=== PATIENT | female | born 1945 | race Caucasian/White ===

== ENCOUNTER → 2017-10-28 | Outpatient (CLI) | payer MEDICARE ==
[2017-10-28 11:32] LABS: Blood Urea Nitrogen 22 mg/dL (7-17); Non-African American GFR(MDRD) >60 (>60 ml/min/1.73 sqM)
--- NOTE | 2017-10-28 13:34 | CT ---
EXAMINATION TYPE: CT ChestAbdPelvis w con DATE OF EXAM: 10/28/2017 INDICATION: Abnormal bone scan. Low back pain with leg weakness COMPARISON: NONE CT DLP: 815.1 mGycm CONTRAST: Performed with Oral Contrast and with IV Contrast, patient injected with 100 mL of Omnipaque 300. TECHNIQUE: Axial images at 5 mm thick sections. Reconstructed images in the coronal plane. Delayed images through the kidneys. FINDINGS: CT CHEST: There is a left breast prosthesis. Portion of the thyroid visualized is normal. No suspicious lung nodules or focal infiltrates are present. Some mild compressive atelectasis is lik na present within the posterior lung bases bilaterally. No enlarged mediastinal or hilar adenopathy is evident. The ascending aorta diameter at the level of the main pulmonary artery is 3.7 cm. The main pulmonary artery diameter at the bifurcation is 3.[address] ABDOMEN: Liver: There are tiny hypodensities scattered within the liver likely related to small hepatic cysts. Spleen: Normal Pancreas: Normal Adrenal glands: The adrenal glands are normal. Gallbladder: Normal Kidneys: No masses are evident. No hydronephrosis is present. Tiny cortical renal cyst is on the righ t mid kidney. Delayed images were obtained through the kidneys demonstrated in the inferior pole righ t peripelvic cyst. Aorta: Vascular calcification is within the aorta. Inferior vena cava: Normal. CT PELVIS: Loops of bowel within the abdomen and pelvis are normal. There are loops of bowel which are incom pletely distended or lack oral contrast limiting their evaluation. Appendix: Not identified Urinary bladder: Normal. Genitourinary structures: Osseous structures: There is a lytic area in the posterior left acetabular column. Some erosion of th e cortex may be present. Since milder hypodensities within the right posterior column. Metastatic dis ease is suspected. There is erosion in the superior right ilium adjacent above the acetabulum. Lytic areas are within the left iliac wing. Lytic areas are within the sacrum and medial right iliac wing. There are scattered lytic areas within the lumbar spine posteriorly at L3. Some posterior compression may be present without spinal canal stenosis. There is a severe compression deformity of L1 with emmanuelle e posterior wall displacement. Multiple lytic areas are within the is utilized to L1 level. Lytic are as are present T12, T11, T10 T9, T8, T6 T2. Additional areas have milder lytic lesions there is erosi on and replacement of the anterior mid sternum. Subcutaneous rib fracture may be present on the right , series 3 image 27. Lytic lesions within the ribs are evident. Fractures may be in the posterior lat eral ribs, series 3 image 31 bilaterally. IMPRESSIONS: 1. Multiple osseous metastatic lesions throughout the axial skeleton, ribs, and pelvis within the fie ld-of-view.
== END | disposition home or self-care (01) ==
LOC: RADCTMAIN 10:30
PROVIDERS: ATTEND Internal Medicine
DX: C79.51 Secondary malignant neoplasm of bone (principal); C50.912 Malignant neoplasm of unspecified site of left female breast
CPT/HCPCS: 82565; 84520; 71260; 74177; 36415; Q9967

== ENCOUNTER → 2018-01-27 | Outpatient (CLI) | payer MEDICARE ==
[2018-01-27 10:13] LABS: Basophils # (A) 0.1 k/uL (0-0.2); Basophils % (A) 1 %; Eosinophils # (A) 0.2 k/uL (0-0.7); Eosinophils % (A) 3 %; HCT 37.7 % (34.0-46.0); HGB 12.2 gm/dL (11.4-16.0); Lymphocytes # (A) 0.6 k/uL (1.0-4.8); Lymphocytes % (A) 12 %; MCH 28.8 pg (25.0-35.0); MCHC 32.2 g/dL (31.0-37.0); MCV 89.2 fL (80.0-100.0); Mean Platelet Volume 7.3; Monocytes # (A) 0.4 k/uL (0-1.0); Monocytes % (A) 7 %; Neutrophils # (A) 4.2 k/uL (1.3-7.7); Neutrophils % (A) 76 %; Platelet Count 351 k/uL (150-450); RBC 4.23 m/uL (3.80-5.40); RDW 15.9 % (11.5-15.5); WBC 5.5 k/uL (3.8-10.6)
[2018-01-27 10:20] LABS: ALT 27 U/L (9-52); AST 38 U/L (14-36); Albumin 4.3 g/dL (3.5-5.0); Alkaline Phosphatase 340 U/L (38-126); Anion Gap 14 mmol/L; Blood Urea Nitrogen 17 mg/dL (7-17); Calcium 8.8 mg/dL (8.4-10.2); Carbon Dioxide 23 mmol/L (22-30); Chloride 105 mmol/L (98-107); Glucose 100 mg/dL (74-99); Potassium 4.7 mmol/L (3.5-5.1); Sodium 142 mmol/L (137-145); Total Bilirubin 0.5 mg/dL (0.2-1.3); Total Protein 7.4 g/dL (6.3-8.2)
--- NOTE | 2018-01-27 11:33 | CT ---
EXAMINATION TYPE: CT ChestAbdPelvis w con DATE OF EXAM: 01/27/2018 COMPARISON: 10/28/2017 HISTORY: Secondary malignant neoplasm of breast CT DLP: 706.50 mGycm CONTRAST: CT scan of the chest, abdomen and pelvis is performed with Oral Contrast and with IV Contrast, patien t injected with 100 ml mL of Isovue 300. CT Chest: LUNGS: The lungs are clear and free of infiltrate. Atelectatic changes right medial lung base. No pul monary nodule or mass is detected. No pleural effusion or CT evidence of interstitial lung disease. MEDIASTINUM: Thoracic aorta is of normal caliber. The heart is not enlarged. No evidence for media stinal mass or adenopathy. HILAR STRUCTURES: No evidence for mass. No hilar adenopathy is appreciated. OTHER: Left-sided breast implant is in place. CONTRAST CT ABDOMEN AND PELVIS FINDINGS: LIVER/GB: No calcified gallstones. Stable subcentimeter lesions left hepatic lobe which are likely related to small hepatic cysts although are too small to characterize. No new lesions are identified. . Biliary tree is of normal caliber. PANCREAS: No inflammation. No distinct mass. SPLEEN: No splenic enlargement. No lesion seen. ADRENALS: No nodule. No thickening. KIDNEYS/BLADDER: No hydronephrosis. No nephrolithiasis. No disctinct renal mass. BOWEL: Sliding-type hiatal hernia. Normal appendix. Normal bowel caliber. No inflammation. GENITAL ORGANS: No gross abnormality. LYMPH NODES: No greater than 1cm abdominal or pelvic lymph nodes are appreciated. AORTA: No significant abnormality. OSSEOUS STRUCTURES: Diffuse bony metastatic disease again noted. New severe compression fracture invo lving T3 and T8. No significant bony retropulsion appreciated however if clinical symptoms warrant MR I should be performed. Persistent severe compression fracture of L1 unchanged in appearance. New mode rate compression fracture of T10. OTHER: No significant additional abnormality is seen. IMPRESSION: 1. Diffuse Bony metastatic disease identified. New Thoracic and lumbar compression fractures as noted. 2. Stable 2 small to characterize hepatic lesions.
--- NOTE | 2018-01-27 13:54 | NM ---
EXAMINATION TYPE: NM bone scan whole body DATE OF EXAM: 01/27/2018 COMPARISON: NONE HISTORY: C79.81 Secondary malignant neoplasm of breast Delayed whole-body scanning was performed following the injection of 23.7 mCi Tc 99m MDP. Images acq uired 3.25 hours post injection. FINDINGS: Intense radiotracer accumulation is noted throughout the bony calvarium. Foci of increased radiotrace r accumulation is noted to involve virtually all of the bilateral ribs, virtually the entirety of the thoracic spine as well as the upper lumbar spine. There is evidence of metastatic disease to the sac rum bilaterally left greater than right as well as the supra-acetabular regions extending into the il iac crest right greater than left. Proximal left femoral head and neck greater than right proximal fe moral uptake compatible with metastatic disease. Uptake about the right mid femoral diaphysis as well as the right humeral diaphysis. Focal increased uptake involving the region of the right coracoid. D egenerative uptake of the knees and wrists and shoulders. IMPRESSION: Multifocal metastatic uptake as noted above.
[2018-01-27 19:14] LABS: CA27.29 Breast Ca Marker 356.6 U/mL (0.0-38.5)
== END | disposition home or self-care (01) ==
LOC: RADNMMAIN 09:17
PROVIDERS: ATTEND Internal Medicine Hematology & Oncology
DX: C79.81 Secondary malignant neoplasm of breast (principal); C79.51 Secondary malignant neoplasm of bone; R94.8 Abnormal results of function studies of other organs and systems; L98.9 Disorder of the skin and subcutaneous tissue, unspecified
CPT/HCPCS: 80053; 86300 ×2; 85025; 71260; 74177; 36415; 78306; A9503; Q9967

== ENCOUNTER → 2018-03-26 | Outpatient (CLI) | payer MEDICARE ==
[2018-03-26 11:31] LABS: ALT 24 U/L (9-52); AST 36 U/L (14-36); Albumin 4.5 g/dL (3.5-5.0); Alkaline Phosphatase 186 U/L (38-126); Anion Gap 14 mmol/L; Blood Urea Nitrogen 17 mg/dL (7-17); Calcium 8.9 mg/dL (8.4-10.2); Carbon Dioxide 22 mmol/L (22-30); Chloride 104 mmol/L (98-107); Glucose 96 mg/dL (74-99); Sodium 140 mmol/L (137-145); Total Bilirubin 0.7 mg/dL (0.2-1.3); Total Protein 7.4 g/dL (6.3-8.2)
[2018-03-26 11:33] LABS: Potassium 5.4 mmol/L (3.5-5.1)
[2018-03-26 11:59] LABS: Anisocytosis Slight; HCT 35.7 % (34.0-46.0); HGB 12.3 gm/dL (11.4-16.0); MCH 33.3 pg (25.0-35.0); MCHC 34.4 g/dL (31.0-37.0); Macrocytosis Slight; Mean Platelet Volume 7.3; Platelet Count 180 k/uL (150-450); RBC 3.69 m/uL (3.80-5.40); RDW 17.3 % (11.5-15.5)
[2018-03-26 12:03] LABS: MCV 96.7 fL (80.0-100.0)
[2018-03-26 12:44] LABS: Eosinophils # (M) 0.02 k/uL (0-0.7); Lymphocytes # (M) 0.32 k/uL (1.0-4.8); Monocytes # (M) 0.16 k/uL (0-1.0); Neutrophils % (M) 75 %; Nucleated Red Blood Cells 0 /100 WBC (0-0); Total Cells Counted 100
[2018-03-26 12:45] LABS: Anisocytosis (M) Present; Poikilocytosis (M) Present
--- NOTE | 2018-03-26 12:56 | CT ---
EXAMINATION TYPE: CT ChestAbdPelvis w con DATE OF EXAM: 03/26/2018 COMPARISON: 01/27/2018 HISTORY: Breast cancer with bone metastases CT DLP: 821.20 mGycm CONTRAST: CT scan of the chest, abdomen and pelvis is performed with Oral Contrast and with IV Contrast, patien t injected with 100 ml mL of Isovue 300. CT Chest: LUNGS: The lungs are clear and free of infiltrate. Right basilar parenchymal scar atelectasis. No pul monary nodule or mass is detected. No pleural effusion or CT evidence of interstitial lung disease. MEDIASTINUM: Thoracic aorta is of normal caliber. The heart is not enlarged. No evidence for media stinal mass or adenopathy. Small sliding-type hiatal hernia. HILAR STRUCTURES: No evidence for mass. No hilar adenopathy is appreciated. OTHER: Left mastectomy with implant in place. Right breast appears grossly unremarkable. CONTRAST CT ABDOMEN AND PELVIS FINDINGS: LIVER/GB: No calcified gallstones. Probable hepatic cysts remain stable. No definite solid hepatic lesions identified. Biliary tree is of normal caliber. PANCREAS: No inflammation. No distinct mass. SPLEEN: No splenic enlargement. No lesion seen. ADRENALS: No nodule. No thickening. KIDNEYS/BLADDER: No hydronephrosis. No nephrolithiasis. No distinct solid renal mass. Normal renal cortical cysts stable. BOWEL: Normal appendix. Normal bowel caliber. No inflammation. GENITAL ORGANS: No gross abnormality. LYMPH NODES: No greater than 1cm abdominal or pelvic lymph nodes are appreciated. AORTA: No significant abnormality. OSSEOUS STRUCTURES: Diffuse bony metastatic disease again noted stable pathologic compression fractur es of the lower thoracic and upper lumbar segments. No significant progression identified at this edwin e. OTHER: No significant additional abnormality is seen. IMPRESSION: 1. Stable diffuse bony metastatic disease. 2. Stable probable hepatic cysts. 3. Stable right renal cysts.
--- NOTE | 2018-03-26 14:47 | NM ---
EXAMINATION TYPE: NM bone scan whole body DATE OF EXAM: 03/26/2018 COMPARISON: 01/20/2017 HISTORY: Follow-up metastatic disease to the bone. Breast carcinoma. Delayed whole-body scanning was performed following the injection of 24.4 mCi Tc 99m MDP. Images acq uired 3 hours post injection. FINDINGS: Persistent but improved lesions: Bony calvarium, right supra-acetabular region. Stable lesions: Throughout the thoracic spine and upper lumbar spine, bilateral ribs, sacrum, left banks pra-acetabular region and proximal femora. Newly lesions: None Result lesions: None IMPRESSION: 1. Diffuse bony metastatic lesions are again noted however there does appear to be slight improvement about the bony calvarium and right supra-acetabular region. Remaining lesions remain stable.
[2018-03-26 17:18] LABS: CA27.29 Breast Ca Marker 245.9 U/mL (0.0-38.5)
== END | disposition home or self-care (01) ==
LOC: RADNMMAIN 10:23
PROVIDERS: ATTEND Internal Medicine Hematology & Oncology
DX: C79.51 Secondary malignant neoplasm of bone (principal); C50.912 Malignant neoplasm of unspecified site of left female breast; N28.1 Cyst of kidney, acquired
CPT/HCPCS: 80053; 86300 ×2; 85025; 71260; 74177; 36415; 78306; A9503; Q9967

== ENCOUNTER → 2018-07-09 | Outpatient (CLI) | payer MEDICARE ==
--- NOTE | 2018-07-09 15:55 | CT ---
EXAMINATION TYPE: CT ChestAbdPelvis w con DATE OF EXAM: 07/09/2018 COMPARISON: 03/26/2018 and 01/27/2018 HISTORY: 73-year-old female breast CA with bone mets TECHNIQUE: Contiguous axial scanning of the chest, abdomen, and pelvis performed with IV Contrast, pa tient injected with 100 mL of Isovue 300. Delayed images through the kidneys were obtained. Coronal/s agittal reconstructions performed. CT DLP: 1667.6 mGycm Automated exposure control for dose reduction was used. FINDINGS: Chest: Heart is upper limits of normal in size without pericardial effusion. Borderline ectasia ascending aorta 3.5 cm. Conventional arch vessel branching anatomy. Borderline ect mirian upper descending thoracic aorta at 3.0 cm. Borderline sized caliber to the main right and left pulmonary arteries at 2.6 and 2.5 cm, respectivel y, possibly representing underlying pulmonary arterial hypertension. Patient status post left mastectomy with breast reconstruction. No thoracic lymphadenopathy by CT siz e criteria Some new focal patchy opacity along the medial aspect of the right superior mediastinum probably repr esenting atelectasis. No consolidation or pleural effusion. Strandy areas of atelectasis in the lower lungs. ABDOMEN: Small hiatal hernia. Stable 9 mm left hepatic lobe hypodensity likely a cyst. An additional adjacent hypodensity segment 3 left liver lobe, axial image 73 is also stable, probable cysts. 2 other hypodense lesions in the rig ht liver lobe measuring up to 6 mm, axial image 81 and 82 remain unchanged and are indeterminate. No new hepatic lesion seen. Portal venous system is patent. No biliary ductal dilatation. Adrenal glands, spleen, and pancreas appear within normal limits. A 1.6 cm parapelvic cyst on the right and a tiny subcentimeter cortical cyst right lower pole redemon strated. 3 mm nonobstructive left renal calculus and a subcentimeter anterior cortical cyst are unchanged. No dilated small bowel, free fluid, or free air. No mesenteric or retroperitoneal lymphadenopathy. No significant stool burden. Mild degree diverticulosis ascending colon and then also at the junction of the descending and sigmoid colon. No pericolonic inflammatory change. Pelvis: Bladder is moderately urine distended measuring up to 12.3 cm. Uterus surgically absent. Neither ovar y is visualized. No abnormal fluid collection the pelvis or pelvic lymphadenopathy. Bones: Diffuse osseous metastases show progressive sclerosis. Some larger lytic areas remain such as involvi ng the posterior left acetabulum (which has similar medial wall erosion), bilateral iliac bones, and sternum. Multiple pathologic bilateral rib fracture deformities are redemonstrated. Stable compression collapse of L1, mild of T11, moderate of T8, and severe of T3. IMPRESSION: 1. STATUS POST LEFT MASTECTOMY WITH BREAST RECONSTRUCTION. 2. APPROXIMATELY 4 HYPODENSE LIVER LESIONS MEASURING UP TO 9 MM ARE UNCHANGED. SUSPECT THAT AT LEAST A COUPLE OF THESE REPRESENT BENIGN CYSTS. A COUPLE IN THE RIGHT LIVER LOBE MEASURING UP TO 6 MM ARE M ORE INDETERMINATE. 3. REDEMONSTRATED DIFFUSE OSSEOUS METASTATIC DISEASE. THERE IS PROGRESSIVE SCLEROSIS INVOLVING THE MA JORITY OF LESIONS WHICH WOULD FAVOR PROGRESSIVE HEALING CHANGE. SOME LARGER AREAS OF LYTIC DESTRUCTIO N REMAIN BUT HAVE NOT INCREASED IN SIZE. STABLE VERTEBRAL COMPRESSION DEFORMITIES. THE THORACOLUMBAR SPINE WILL BE REPORTED SEPARATELY.
--- NOTE | 2018-07-09 16:02 | CT ---
CT cervical thoracic and lumbar spine HISTORY: Breast cancer with bone metastasis Reconstructed images of the cervical thoracic and lumbar spine performed on patient's CT same day Correlation to bone scan 03/26/2018 Cervical spine show some loss of height at C3. Sclerotic foci present diffusely within the cervical s pine. There is also underlying degenerative disc change. Lucency also present within the right latera l aspect C1. Cervical vertebral bodies are intact. There is no evident spinal stenosis or significant foraminal encroachment. Thoracic spine shows compression fracture with loss of height of greater than 75% centrally at T3. Re tropulsion of approximately 3 to 4 mm is suggested. T8 also shows loss of height of approximately 50% with minimal retropulsion of only approximately 2 to 3 mm. Mild loss of height present at T11, infer ior endplate projects posteriorly approximately 4 mm causing some anterior mass effect on the thecal sac There are mixed lytic and sclerotic foci present throughout the skeleton. At L1 there is loss of height of superior endplate by approximately 75%, some kyphosis is present, re trolisthesis grade 1 is present L1-L2 with some mild spinal stenosis resulting. Foraminal encroachmen t also suspected at T12-L1, L1-2 on the right. Superior endplate of L3 also show some mild loss of he ight posteriorly. The lytic lesion seen within the sternum. There are sclerotic foci also within the manubrium and with in the pelvis, sacrum, ribs. There is an underlying spinal curvature. IMPRESSION: Metastatic disease as described.
== END ==
LOC: RADNMMAIN 11:06
PROVIDERS: ATTEND Internal Medicine Hematology & Oncology
DX: C79.51 Secondary malignant neoplasm of bone (principal); C50.912 Malignant neoplasm of unspecified site of left female breast; Z90.12 Acquired absence of left breast and nipple; K76.9 Liver disease, unspecified
CPT/HCPCS: 72129; 72126; 72132; 71260; 74177; 78306; A9503; Q9967

== ENCOUNTER → 2018-10-28 | Outpatient (CLI) | payer MEDICARE ==
--- NOTE | 2018-10-28 08:23 | CT ---
EXAMINATION TYPE: CT CervThorLumbar spine wo con DATE OF EXAM: 10/28/2018 COMPARISON: 07/09/2018 HISTORY: Follow up scan per patient breast CA with metastatic disease. CT DLP: 1001.7 mGycm Automated exposure control for dose reduction was used. Unenhanced CT of the cervical, thoracic and l umbar spines was performed. FINDINGS: There is a lesion noted inner table right occipital bone. Cervical spine demonstrates mild loss of height involving superior plate of C3 unchanged. Sclerotic f oci present diffusely within the cervical spine. There is also underlying degenerative disc change. L ucency also present within the right lateral aspect C1. Cervical vertebral bodies are intact. There i s no evident spinal stenosis or significant foraminal encroachment. Overall stable appearance. Thoracic spine shows compression fracture with loss of height of greater than 90% unchanged from prio r examination centrally at T3. Retropulsion of approximately 3 to 4 mm is suggested. T8 also shows lo ss of height of approximately 50% with minimal retropulsion of only approximately 2 to 3 mm. Stable a ppearance Mild loss of height present at T11, inferior endplate projects posteriorly approximately 4 mm causing some anterior mass effect on the thecal sac There are mixed lytic and sclerotic foci prese nt throughout the skeleton. At L1 there is loss of height of superior endplate by approximately 75%, some kyphosis is present, re trolisthesis grade 1 is present L1-L2 with some mild spinal stenosis resulting. Foraminal encroachmen t also suspected at T12-L1, L1- 2 on the right. Superior endplate of L3 also show some mild loss of h eight posteriorly. The lytic lesion seen within the sternum. There are sclerotic foci also within the manubrium and within the pelvis, sacrum, ribs. There is an underlying spinal curvature. IMPRESSION: ESSENTIALLY STABLE METASTATIC DISEASE TO THE CERVICAL, THORACIC AND LUMBAR SPINE.
== END ==
LOC: RADCTMAIN 06:42
PROVIDERS: ATTEND Internal Medicine
DX: C50.819 Malignant neoplasm of overlapping sites of unspecified female breast (principal); C79.49 Secondary malignant neoplasm of other parts of nervous system; C79.51 Secondary malignant neoplasm of bone
CPT/HCPCS: 72125; 72128; 72131

== ENCOUNTER → 2019-03-22 | Outpatient (CLI) | payer MEDICARE ==
[2019-03-22 09:41] LABS: Blood Urea Nitrogen 13 mg/dL (7-17)
--- NOTE | 2019-03-22 17:11 | NM ---
EXAMINATION TYPE: NM bone scan whole body DATE OF EXAM: 03/22/2019 COMPARISON: 07/09/2018 HISTORY: Breast cancer with bone metastases Delayed whole-body scanning was performed following the injection of 25.1 mCi Tc 99m MDP. Images wer e acquired 3.5 hours post injection. FINDINGS: Multiple foci radiotracer accumulation are within the calvarium. There are multiple scattered areas o f uptake within the bilateral ribs compatible with metastatic disease. Radiotracer accumulation withi n scattered areas of the right humerus are suspicious for metastatic disease. Suspicious uptake is wi thin the sternum in the mid and lower portion suspicious for metastatic disease. There is uptake within the L2 pedicles, the L3 and L1 vertebral bodies, T12, T11, T10, T8, T6 vertebr al body regions suspicious for metastatic disease. Some subtle uptake near the lesser trochanters of the bilateral hips may be present. Uptake in the region of the sacral wings appears less intense than the comparison. Femoral uptake oscar ears less apparent on the current exam. Radiotracer distribution otherwise appears similar. No new hy permetabolic activity is identified. IMPRESSION: 1. Overall distribution of suspected metastasis appears stable from comparison.
--- NOTE | 2019-03-22 17:49 | CT ---
EXAMINATION TYPE: CT ChestAbdPelvis w con DATE OF EXAM: 03/22/2019 INDICATION: Breast cancer with bone metastasis COMPARISON: 07/09/2018 CT DLP: 1746 mGycm CONTRAST: Performed with Oral Contrast and with IV Contrast, patient injected with 100 ml mL of Isovue 300. TECHNIQUE: Axial images at 5 mm thick sections. Reconstructed images in the coronal plane. Delayed images through the kidneys. FINDINGS: CT CHEST: There is a left breast prosthesis. Portion of the thyroid visualized is normal. No suspicious lung nodules or focal infiltrates are present. No enlarged mediastinal or hilar adenopathy is evident. The ascending aorta diameter at the level of the main pulmonary artery is 3.9 cm. The main pulmonary artery diameter at the bifurcation is 3.[address] ABDOMEN: Liver: There is a small cyst in the medial left lobe liver. Small cyst may be in the posterior inferi or right lobe liver. Tiny subcortical cyst may be within the right lobe liver, series 3 image 55. Thi s is too small to classify and other etiologies including metastases cannot be excluded. This is not a typical cyst by CT. Spleen: Normal Pancreas: Normal Adrenal glands: The adrenal glands are normal. Gallbladder: Normal Kidneys: No masses are evident. No hydronephrosis is present. Couple small cortical renal cysts are present on the right kidney. A peripelvic cyst is likely within the inferior pole right kidney. On d elayed images contrast extends around this compatible with a peripelvic cyst. Delayed images were ob tained through the kidneys. Aorta: Normal Inferior vena cava: Normal. CT PELVIS: Loops of bowel within the abdomen and pelvis are normal. There are loops of bowel which are incom pletely distended or lack oral contrast limiting their evaluation. Appendix: Not identified. No suspicious inflammatory changes are evident. Urinary bladder: Normal. Genitourinary structures: Uterus and ovaries are not identified. Osseous structures: Extensive sclerotic metastasis is present within the pelvis and bilateral hips an d throughout the axial skeleton. Sclerotic areas are within multiple ribs. Some compression deformiti es are noted including posterior L3, L1, T11 and T8 and T3. Some posterior wall displacement may be p resent L1 T12 and T3 without spinal canal stenosis. These areas appear stable from the comparison. Me tastasis is noted within the sternum. No right humeral metastases are not as well appreciated on this exam. Osseous metastasis are additionally delineated on the nuclear medicine bone scan performed on the same date. IMPRESSIONS: 1. Extensive sclerotic metastasis discussed above. This is also further evaluated with nuclear medici ne bone scan on the same date. 2. Stable appearing compression deformities in the region of T3, T8, T11, L1 and L3. 3. Suspected hepatic cysts discussed above. A small hypodensity in the subcortical right lobe liver n ot typical for small cyst however is stable from comparison of 2018.
== END | disposition home or self-care (01) ==
LOC: RADNMMAIN 08:48
PROVIDERS: ATTEND Internal Medicine Hematology & Oncology
DX: C50.919 Malignant neoplasm of unspecified site of unspecified female breast (principal); C79.51 Secondary malignant neoplasm of bone
CPT/HCPCS: 82565; 84520; 71260; 74177; 36415; 78306; A9503; Q9967

== ENCOUNTER → 2019-03-26 | Outpatient (CLI) | payer MEDICARE ==
--- NOTE | 2019-03-26 08:34 | CT ---
EXAMINATION TYPE: CT cervical spine wo con, CT lumbar spine wo con, CT thoracic spine wo con DATE OF EXAM: 03/26/2019 COMPARISON: 10/28/2018 HISTORY: Follow up scan per patient. Currently doing treatment for breast cancer with bone mets CT DLP: 1038.[address] of the cervical, thoracic and lumbar spine was performed with bone and soft tissue wind ow settings submitted. Coronal and sagittal reconstruction is obtained. Inner table right occipital bone lesion remains stable. Cervical spine: Predominantly sclerotic and a few lytic foci present diffusely within the cervical sp ine. Mild loss of height superior endplate of C3 is stable. Scattered degenerative disc disease witho ut central stenosis. Lucency continues to be present lateral aspect of C1. Thoracic spine: Severe T3 compression fracture of 90% unchanged. Retropulsion of 4 mm suggested. Loss of height T8 at the estimated 50% minimal bony retropulsion approximately 3 mm. Stable appearance lo ss of height at T11 with 4 mm anterior mass effect upon the thecal sac. There are mixed lytic and scl erotic foci present throughout the thoracic spine. Lumbar spine: Loss of height estimated at 75% involving the superior endplate of L1. There is associa dipti kyphosis. Stable retropulsion identified with mild spinal stenosis. Grade 1 retrolisthesis of L1 on L2 is unchanged. Mild loss of height superior endplate of L3 stable. Mixed sclerotic and lytic les ions persists. Graft all the visualized osseous structures demonstrate mixed sclerotic and lytic lesi ons. IMPRESSION: 1. Stable metastatic disease to the cervical, thoracic and lumbar spines.
== END | disposition home or self-care (01) ==
LOC: RADCTMAIN 07:09
PROVIDERS: ATTEND Neurological Surgery
DX: C79.51 Secondary malignant neoplasm of bone (principal); C50.919 Malignant neoplasm of unspecified site of unspecified female breast
CPT/HCPCS: 72125; 72128; 72131

== ENCOUNTER → 2019-07-15 | Outpatient (CLI) | payer MEDICARE ==
--- NOTE | 2019-07-15 16:01 | NM ---
EXAMINATION TYPE: NM bone scan whole body DATE OF EXAM: 07/15/2019 COMPARISON: 03/22/2019 HISTORY: Metastatic breast cancer Delayed whole-body scanning was performed following the injection of 22.3 mCi Tc 99m MDP. Images acq uired 4 hours post injection. FINDINGS: New lesions: None Improved lesions: None Progressive lesions: None Stable lesions: Stable lesions are seen throughout the bony calvarium, cervical thoracic and lumbar s pine regions, bilateral ribs, bilateral humeri right greater than left, and pelvis IMPRESSION: Osseous metastatic lesions are stable in the interval.
== END | disposition home or self-care (01) ==
LOC: RADNMMAIN 10:02
PROVIDERS: ATTEND Internal Medicine Hematology & Oncology
DX: C79.51 Secondary malignant neoplasm of bone (principal); C50.919 Malignant neoplasm of unspecified site of unspecified female breast
CPT/HCPCS: 78306; A9503

== ENCOUNTER → 2019-07-22 | Outpatient (CLI) | payer MEDICARE ==
[2019-07-22 14:00] LABS: HCT 35.8 % (34.0-46.0); MCH 34.5 pg (25.0-35.0); MCHC 33.4 g/dL (31.0-37.0); MCV 103.4 fL (80.0-100.0); Macrocytosis Slight; Mean Platelet Volume 6.5; Platelet Count 195 k/uL (150-450); RBC 3.46 m/uL (3.80-5.40); RDW 14.2 % (11.5-15.5); WBC 2.2 k/uL (3.8-10.6)
[2019-07-22 14:13] LABS: ALT 28 U/L (9-52); AST 48 U/L (14-36); African American GFR (CKD) >90 (>60 ml/min/1.73 sqM); Albumin 4.8 g/dL (3.5-5.0); Alkaline Phosphatase 118 U/L (38-126); Anion Gap 12 mmol/L; Blood Urea Nitrogen 18 mg/dL (7-17); Calcium 9.7 mg/dL (8.4-10.2); Carbon Dioxide 24 mmol/L (22-30); Chloride 98 mmol/L (98-107); Glucose 97 mg/dL (74-99); Potassium 3.9 mmol/L (3.5-5.1); Sodium 134 mmol/L (137-145); Total Bilirubin 0.5 mg/dL (0.2-1.3)
[2019-07-22 15:31] LABS: Eosinophils # (M) 0.02 k/uL (0-0.7); Lymphocytes # (M) 0.55 k/uL (1.0-4.8); Monocytes # (M) 0.13 k/uL (0-1.0); Neutrophils % (M) 68 %; Nucleated Red Blood Cells 0 /100 WBC (0-0); Polychromasia Present; Total Cells Counted 100
--- NOTE | 2019-07-22 16:05 | CT ---
EXAMINATION TYPE: CT ChestAbdPelvis w con DATE OF EXAM: 07/22/2019 COMPARISON: 03/22/2019 and 07/09/2018 HISTORY: 74 year-old female follow-up, History of breast cancer. TECHNIQUE: Contiguous axial scanning of the chest, abdomen, and pelvis performed with IV Contrast, pa tient injected with 100 mL of Isovue 300. Delayed images through the kidneys were obtained. Coronal/s agittal reconstructions performed. CT DLP: 1565 mGycm Automated exposure control for dose reduction was used. FINDINGS: Chest: Left breast reconstruction with retropectoral implant. Heart upper limits of normal in size without pericardial effusion. Ectatic ascending aorta 3.6 cm. Conventional arch vessel branching anatomy. A large caliber to the main right and left pulmonary arteries are 2.9 and 2.6 cm, respectively, sugge sting underlying pulmonary arterial hypertension. No thoracic lymphadenopathy by CT size criteria. Strandy areas of atelectasis or scarring in the lungs. Multiple old healed bilateral rib fracture def ormities. No consolidation or pleural effusion. ABDOMEN: Limitation in assessment due to prominent artifacts from the patient's arms being down. A left hepatic lobe cyst measuring 9 mm is unchanged as is a second tiny adjacent left liver lobe cys t. A third tiny cyst inferior right liver lobe is stable. Portal venous system is patent. No biliary ductal dilatation. Gallbladder, adrenal glands, spleen, and pancreas show no gross abnormal body. 1.6 cm parapelvic cyst right kidney. Punctate 2 mm nonobstructive calculus lower pole left kidney. Ad ditional tiny subcentimeter cortical hypodensity anterior left kidney is stable, likely a cyst. Prominent gaseous distention of the stomach. No dilated small bowel, free fluid, or free air. No mesenteric or retroperitoneal lymphadenopathy. Scattered mild stool. No pericolonic inflammatory change. Pelvis: Bladder is urine distended. Left-sided pelvic phlebolith. Uterus surgically absent. Neither ovary is seen and also probably surgically absent. No abnormal fluid collection in the pelvis or pelvic lympha denopathy. Bones: Diffuse osteoblastic lesions throughout the proximal femurs, pelvis, sacrum and bilateral RIBS, bonilla um, distal clavicles, scapulae are largely unchanged. Stable area of cortical erosion along the posterior wall of the upper sternal manubrium and additiona l cortical disruption along the medial wall of the posterior acetabulum. IMPRESSION: 1. OVERALL STABLE EXTENSIVE SCLEROTIC METASTATIC LESIONS. STABLE LYTIC AREAS WITH SMALL CORTICAL DISR UPTION ALONG THE POSTERIOR ASPECT OF THE UPPER STERNAL MANUBRIUM AND ALONG THE MEDIAL WALL OF THE POS TERIOR LEFT ACETABULUM. 2. LEFT BREAST RECONSTRUCTION. NO OTHER EVIDENCE FOR METASTATIC DISEASE IN THE CHEST, ABDOMEN, OR PEL VIS. 3. THE SPINE IS REPORTED SEPARATELY.
--- NOTE | 2019-07-22 16:20 | CT ---
CT cervical thoracic lumbar spine HISTORY: Metastatic breast carcinoma CT acquisition obtained through the cervical, thoracic, lumbar spine following 100 cc Isovue [address] cervical spine 03/26/2019, CT thoracic and lumbar spine 03/26/2019 Automated exposure control for dose reduction. DLP 1565 mGycm. Multiplanar reconstructions. Multilevel sclerotic and lytic foci are present within the cervical, thoracic, and lumbar spine, Too numerous to count lesions are present involving essentially all of the vertebral bodies as well as vi sualized portions of the pelvis and sacrum, ribs, sternum, right scapula. Compression deformity at T3 shows similar loss of height with retropulsion, T8 also shows similar oscar earance with compression loss of height, mild retropulsion, L1 shows a similar appearance with retrop ulsion. There is a spinal curvature as on prior. Some loss of height posteriorly at L3 shows a stable appearance. Overall alignment appears similar to prior exam. No abnormal enhancement. IMPRESSION: There is not a significant interval change in the extensive metastatic disease seen withi n the visualized skeleton.
[2019-07-22 19:46] LABS: CA27.29 Breast Ca Marker 1283.9 U/mL (0.0-38.5)
== END | disposition home or self-care (01) ==
LOC: RADCTMAIN 13:04
PROVIDERS: ATTEND Internal Medicine Hematology & Oncology
DX: C50.919 Malignant neoplasm of unspecified site of unspecified female breast (principal); Z42.1 Encounter for breast reconstruction following mastectomy
CPT/HCPCS: 80053; 86304; 85025; 86300; 72129; 72126; 72132; 71260; 74177; 36415; Q9967

== ENCOUNTER → 2019-11-05 | Outpatient (CLI) | payer MEDICARE ==
--- NOTE | 2019-11-05 16:05 | NM ---
EXAMINATION TYPE: NM bone scan whole body DATE OF EXAM: 11/05/2019 COMPARISON: 07/15/2019 HISTORY: Metastatic disease, breast cancer Delayed whole-body scanning was performed following the injection of 24.6 mCi Tc 99m MDP. Images wer e acquired 3.25 hours post injection. FINDINGS: Multiple metastatic lesions are scattered throughout the skull. Additional lesions are within the ivan ateral ribs, right humerus, thoracic and lumbar spine, sacrum. Distribution appears stable. New Lesions are not identified. Improved lesion are not identified. Progressive lesions: Within the ribs on the right posterior, right iliac wing. IMPRESSION: 1. Distribution is stable from comparison. There may be some increasing radiotracer within rib lesion s and within the right anterior iliac wing.
== END | disposition home or self-care (01) ==
LOC: RADNMMAIN 09:34
PROVIDERS: ATTEND Internal Medicine Hematology & Oncology
DX: C79.51 Secondary malignant neoplasm of bone (principal); C50.919 Malignant neoplasm of unspecified site of unspecified female breast
CPT/HCPCS: 78306; A9503

== ENCOUNTER → 2019-11-09 | Outpatient (CLI) | payer MEDICARE ==
[2019-11-09 09:02] LABS: African American GFR (CKD) >90 (>60 ml/min/1.73 sqM); Blood Urea Nitrogen 18 mg/dL (7-17); Non-African American GFR(CKD) 86 (>60 ml/min/1.73 sqM)
--- NOTE | 2019-11-09 15:20 | CT ---
EXAMINATION TYPE: CT ChestAbdPelvis w con DATE OF EXAM: 11/09/2019 INDICATION: Breast cancer with bone mets COMPARISON: 07/22/2019 CT DLP: 1566 mGycm CONTRAST: Performed with Oral Contrast and with IV Contrast, patient injected with 100 mL of . TECHNIQUE: Axial images at 5 mm thick sections. Reconstructed images in the coronal plane. Delayed images through the kidneys. FINDINGS: CT CHEST: Portion of the thyroid visualized is normal. There is a left breast prosthesis. No suspicious lung nodules or focal infiltrates are present. No enlarged mediastinal or hilar adenopathy is evident. The ascending aorta diameter at the level of the main pulmonary artery is 3.9 cm. The main pulmonary artery diameter at the bifurcation is 3.[address] ABDOMEN: Liver: There is a 1.1 cm hypodensity within the medial left lobe liver could be a small hepatic cyst. Couple of additional smaller areas are within the inferior right lobe liver may be small hepatic cys ts. Spleen: Normal Pancreas: Normal Adrenal glands: The adrenal glands are normal. Gallbladder: Normal Kidneys: No masses are evident. No hydronephrosis is present. There may be an inferior pole right r enal peripelvic cyst. Delayed images were obtained through the kidneys, which remain unremarkable. Aorta: Vascular calcification is within the aorta. Inferior vena cava: Normal. CT PELVIS: Loops of bowel within the abdomen and pelvis are normal. There are loops of bowel which are incom pletely distended or lack oral contrast limiting their evaluation. Appendix: Not visualized Urinary bladder: Normal. Genitourinary structures: Uterus and ovaries are not identified. Osseous structures: No suspicious lytic or sclerotic lesions. IMPRESSIONS: 1. Suspected small hepatic cysts present previously. 2. Probable inferior pole right renal peripelvic cysts. 3. Exam is stable from comparison.
== END | disposition home or self-care (01) ==
LOC: RADCTMAIN 07:22
PROVIDERS: ATTEND Internal Medicine Hematology & Oncology
DX: C50.919 Malignant neoplasm of unspecified site of unspecified female breast (principal); C79.51 Secondary malignant neoplasm of bone
CPT/HCPCS: 82565; 84520; 71260; 74177; 36415; Q9967 ×2

== ENCOUNTER → 2020-04-24 | Outpatient (CLI) | payer MEDICARE ==
[2020-04-24 10:18] LABS: Basophils % (A) 1 %; Eosinophils # (A) 0.2 k/uL (0-0.7); Eosinophils % (A) 3 %; HCT 40.3 % (34.0-46.0); HGB 13.2 gm/dL (11.4-16.0); Lymphocytes # (A) 1.2 k/uL (1.0-4.8); Lymphocytes % (A) 15 %; MCH 30.1 pg (25.0-35.0); MCHC 32.9 g/dL (31.0-37.0); MCV 91.5 fL (80.0-100.0); Mean Platelet Volume 6.8; Monocytes # (A) 0.5 k/uL (0-1.0); Monocytes % (A) 7 %; Neutrophils # (A) 5.5 k/uL (1.3-7.7); Neutrophils % (A) 72 %; Platelet Count 225 k/uL (150-450); RDW 14.8 % (11.5-15.5); WBC 7.6 k/uL (3.8-10.6)
[2020-04-24 10:30] LABS: ALT 24 U/L (4-34); AST 49 U/L (14-36); African American GFR (CKD) >90 (>60 ml/min/1.73 sqM); Albumin 4.5 g/dL (3.5-5.0); Alkaline Phosphatase 158 U/L (38-126); Anion Gap 9 mmol/L; Blood Urea Nitrogen 11 mg/dL (7-17); Calcium 10.7 mg/dL (8.4-10.2); Carbon Dioxide 28 mmol/L (22-30); Chloride 100 mmol/L (98-107); Glucose 116 mg/dL (74-99); Non-African American GFR(CKD) 86 (>60 ml/min/1.73 sqM); Potassium 4.5 mmol/L (3.5-5.1); Sodium 137 mmol/L (137-145); Total Bilirubin 0.7 mg/dL (0.2-1.3); Total Protein 7.6 g/dL (6.3-8.2)
--- NOTE | 2020-04-24 14:09 | CT ---
EXAMINATION TYPE: CT ChestAbdPelvis w con DATE OF EXAM: 04/24/2020 COMPARISON: Prior CT November 09, 2019 and older studies. Whole body bone scan earlier today. HISTORY: Follow up breast cancer with bone mets progress study. CT DLP: 1347.9 mGycm. Automated Exposure Control for Dose Reduction was Utilized. CONTRAST: CT scan of the thorax, abdomen and pelvis is performed with oral and with IV Contrast, patient inject ed with 100 mL of Isovue 300. FINDINGS: LUNGS: Pulmonary fibrotic changes in both lower lungs with slightly elevated left hemidiaphragm is re demonstrated. No suspicious new nodules or masses. MEDIASTINUM: There are no greater than 1 cm hilar or mediastinal lymph nodes. No pericardial effusi on is seen. Stable mild cardiomegaly. OTHER: Left breast subpectoral implant redemonstrated.. LIVER/GB: Stable hypodense 1.0 cm lesion left hepatic lobe axial image 48 consistent with thin-walled cyst and subcentimeter lesions right hepatic lobe. PANCREAS: No significant abnormality is seen. SPLEEN: No significant abnormality is seen. ADRENALS: No significant abnormality is seen. KIDNEYS: Symmetric cord medullary uptake and excretion without hydronephrosis seen bilaterally. Simpl e appearing 1.9 cm thin-walled cyst right kidney mid to lower pole level is present. Stable nonobstru cting 3 mm lower pole left renal calculus coronal image 63 and subcentimeter exophytic cyst laterally right kidney axial image 67 series 3. BOWEL: The oral contrast does not reach colonic level making evaluation of distal bowel suboptimal. N o suspicious small or large bowel dilatation. GENITAL ORGANS: Uterus surgically absent or markedly atrophic. A few scattered pelvic phleboliths.. LYMPH NODES: No greater than 1cm abdominal or pelvic lymph nodes are appreciated. OSSEOUS STRUCTURES: There are innumerable lytic and sclerotic osseous metastatic lesions involving en tire spine, bilateral ribs, bilateral pelvis and proximal femurs along with sternum and visualized po rtion of both shoulders is redemonstrated. Persistent moderate compression fracture L1 level with pos terior retropulsion. Persistent mild to moderate compression fracture T8 level with diffuse sclerosis . Persistent advanced compression type fracture T3 vertebra. Persistent chronic displaced midsternal pathologic fracture. OTHER: No significant additional abnormality is seen. IMPRESSION: Diffuse osseous metastatic disease redemonstrated. No new suspicious mass or adenopathy t o suggest additional or new metastatic progression.
--- NOTE | 2020-04-24 15:21 | NM ---
EXAMINATION TYPE: NM bone scan whole body DATE OF EXAM: 04/24/2020 COMPARISON: NONE HISTORY: Breast cancer Delayed whole-body scanning was performed following the injection of 23.6 mCi Tc 99m MDP. Images wer e acquired 3.5 hours post injection. FINDINGS: Multiple focal areas of increased radiotracer accumulation are within the calvarium compatible with m etastatic disease. There are several focal areas of radiotracer accumulation within the diaphysis of the mid right humerus. There is scattered areas of increased radiotracer accumulation within multiple ribs bilaterally kj tible with metastatic lesions. There is focal radiotracer accumulation within several pedicles of the thoracic and lumbar spine incl uding the regions of L1 and L3, T11 and T8. Metastatic disease should be considered. IMPRESSION: 1. Diffuse multiple radiotracer foci suggestive for metastatic disease including multiple bilateral r ibs, the calvarium, right diaphyseal humerus, and several thoracic and lumbar levels.
[2020-04-24 19:51] LABS: Cancer Antigen 153 3733.8 U/mL (0.0-32.3)
== END | disposition home or self-care (01) ==
LOC: RADNMMAIN 09:37
PROVIDERS: ATTEND Internal Medicine Hematology & Oncology
DX: C50.919 Malignant neoplasm of unspecified site of unspecified female breast (principal); C79.51 Secondary malignant neoplasm of bone
CPT/HCPCS: 80053; 86300 ×2; 85025; 71260; 74177; 36415; 78306; A9503; Q9967

== ENCOUNTER → 2020-08-01 | Outpatient (CLI) | payer MEDICARE ==
--- NOTE | 2020-08-01 14:46 | NM ---
EXAMINATION TYPE: NM bone scan whole body DATE OF EXAM: 08/01/2020 COMPARISON: 04/24/2020 HISTORY: Malignant neoplasm of the breast, metastasis Delayed whole-body scanning was performed following the injection of 23.2 mCi Tc 99m MDP. Images wer e acquired 3 hours post injection. FINDINGS: Multiple metastatic lesions are within the calvarium. There are extensive metastatic lesions within t he bilateral ribs. Scattered metastatic lesions are within the proximal to mid diaphysis of the bilat eral humeri. Focal radiotracer accumulation within axial skeleton including increased uptake in the r egion of L2, T12, T10, T8 7 and 6 are present suggestive for metastatic disease. Some focal uptake is within the mid diaphysis bilateral femurs, left more so than right. Some increase uptake is within t he left mandible IMPRESSION: 1. Multiple foci of radiotracer accumulation suspicious for metastatic disease most notably proximal right diaphyseal humerus, left mid diaphyseal femur, and multiple bilateral mid and lower ribs. Addit ional areas suspicious for metastatic disease includes thoracic and lumbar spine and calvarium discus sed above. 2. There are additional smaller areas of uptake which are also suspicious for metastatic disease
== END | disposition home or self-care (01) ==
LOC: RADNMMAIN 10:19
PROVIDERS: ATTEND Internal Medicine Hematology & Oncology
DX: R94.8 Abnormal results of function studies of other organs and systems (principal); C79.81 Secondary malignant neoplasm of breast; C79.51 Secondary malignant neoplasm of bone
CPT/HCPCS: 78306; A9503

== ENCOUNTER → 2020-08-03 | Outpatient (CLI) | payer MEDICARE ==
--- NOTE | 2020-08-03 23:10 | CT ---
EXAMINATION TYPE: CT ChestAbdPelvis w con DATE OF EXAM: 08/03/2020 INDICATION: Malignant Neoplasm of Breast COMPARISON: 04/24/2020 CT DLP: 1181.5 mGycm CONTRAST: Performed with Oral Contrast and with IV Contrast, patient injected with 100 mL of Isovue 300. TECHNIQUE: Axial images at 5 mm thick sections. Reconstructed images in the coronal plane. Delayed images through the kidneys. FINDINGS: CT CHEST: There is a left breast prosthesis. Portion of the thyroid visualized is normal. Some mild pneumonitis changes within the anterior lateral left lung base left lower lobe. Series 4 im age 38. Note is made of old rib fractures. No enlarged mediastinal or hilar adenopathy is evident. The ascending aorta diameter at the level of the main pulmonary artery is 3.9 cm. The main pulmonary artery diameter at the bifurcation is 3.[address] ABDOMEN: Liver: There are some ill-defined hypodensities better visualized on the early phase of contrast. Thi s would include a 2.0 cm hypodensity inferior right tip of the liver couple of hypodensities within t he anterior right lobe liver measuring 1.1 and 1.6 cm and a posterior left lobe liver area measuring 1.4 cm. There are additional low-density areas more compatible with cysts. One of the larger of these measures 1.2 cm in the right lobe liver near the diaphragm measures -1 Hounsfield units. On delayed images the more subtle hypodensities are not well visualized. Consider evaluation with MRI of the [facility] er. Spleen: Normal Pancreas: Normal Adrenal glands: The adrenal glands are normal. Gallbladder: Normal Kidneys: No masses are evident. No hydronephrosis is present. No cysts are present. Delayed images were obtained through the kidneys. Peripelvic cyst at the inferior pole left kidney. Her graft Aorta : Normal Inferior vena cava: Normal. CT PELVIS: Loops of bowel within the abdomen and pelvis are normal. There are loops of bowel which are incom pletely distended or lack oral contrast limiting their evaluation. Appendix: Not identified. No suspicious tubular structure or inflammatory changes evident. Urinary bladder: Normal. Genitourinary structures: Osseous structures: Extensive metastatic disease is evident throughout the axial and appendicular ske leton. Multiple changes are within the pelvis and ribs. Proximal femoral metastatic lesions are prese nt. Larger lytic lesions some of which have a cortical disruption are at the bilateral acetabulum and within the medial aspects of the iliac wings. Extensive metastatic disease is throughout the lumbar spine thoracic spine. Multiple bilateral metastatic rib involvement is evident IMPRESSIONS: 1. Extensive metastatic disease throughout the osseous structures. 2. Subtle hypodensities on the early phase of contrast within the liver. Liver appears more homogenou s on the delayed images. Subtle underlying metastatic disease may be present. Consider MRI with contr ast for additional evaluation.
== END | disposition home or self-care (01) ==
LOC: RADCTMAIN 06:17
PROVIDERS: ATTEND Internal Medicine Hematology & Oncology
DX: C79.51 Secondary malignant neoplasm of bone (principal); C50.919 Malignant neoplasm of unspecified site of unspecified female breast; R93.2 Abnormal findings on diagnostic imaging of liver and biliary tract; Z92.21 Personal history of antineoplastic chemotherapy
CPT/HCPCS: 71260; 74177; Q9967 ×2

== ENCOUNTER → 2020-12-01 | Outpatient (CLI) | payer MEDICARE ==
--- NOTE | 2020-12-01 15:25 | NM ---
EXAMINATION TYPE: NM bone scan whole body DATE OF EXAM: 12/01/2020 COMPARISON: Prior study August 01, 2020 HISTORY: Metastatic breast cancer. Delayed whole-body scanning was performed following the injection of 23.1 mCi Tc 99m MDP. Images acq uired 3 hours post injection. FINDINGS: Diffuse osseous metastatic disease redemonstrated. Multifocal areas of uptake in the calvarium remain present. Multifocal areas of increased uptake in the ribs bilaterally redemonstrated. Multifocal upt lorenzo in the thoracolumbar spine redemonstrated. There is involvement in the bilateral proximal femurs along with multifocal areas of the pelvis redemonstrated. Areas of increased uptake in the bilateral shoulders and humeri are redemonstrated. Overall no appreciable change from prior study. No definitive new lesions. No areas with diminished r adiotracer uptake noted. IMPRESSION: Stable diffuse osseous metastatic disease.
== END | disposition home or self-care (01) ==
LOC: RADNMMAIN 08:21
PROVIDERS: ATTEND Internal Medicine Hematology & Oncology
DX: C79.81 Secondary malignant neoplasm of breast (principal); C79.51 Secondary malignant neoplasm of bone
CPT/HCPCS: 78306; A9503

== ENCOUNTER → 2021-03-01 | Outpatient (CLI) | payer MEDICARE ==
--- NOTE | 2021-03-01 12:56 | NM ---
EXAMINATION TYPE: NM bone scan whole body DATE OF EXAM: 03/01/2021 COMPARISON: Whole body bone scan December 01, 2020 and older studies. Most recent CT August 03, 2020 HISTORY: Breast cancer. Delayed whole-body scanning was performed following the injection of 25.4 mCi Tc 99m MDP. Images acq uired 3 hours post injection. FINDINGS: Diffuse osseous metastatic disease redemonstrated. Multifocal areas of uptake in the calvarium remain present. Multifocal areas of increased uptake in the ribs bilaterally redemonstrated. Multifocal upt lorenzo in the thoracolumbar spine redemonstrated. There is involvement in the bilateral proximal femurs along with multifocal areas of the pelvis redemonstrated. Areas of increased uptake in the bilateral shoulders and humeri are redemonstrated. Overall no obvious change from most recent bone scan. IMPRESSION: Diffuse osseous metastatic disease redemonstrated.
== END | disposition home or self-care (01) ==
LOC: RADNMMAIN 08:15
PROVIDERS: ATTEND Internal Medicine Hematology & Oncology
DX: C50.919 Malignant neoplasm of unspecified site of unspecified female breast (principal); C79.51 Secondary malignant neoplasm of bone
CPT/HCPCS: 78306; A9503